=== PATIENT | female | born 1955 | race Caucasian/White ===

== ENCOUNTER 2025-06-18 07:45 | Day surgery (SDC) | payer MEDICARE, OTHER ==
[~2025-06-18] VITALS: Ht 170.2 cm; Wt 76.0 kg
[~2025-06-18 07:45] MED LIST: ATORVASTATIN CA20 MG PO; CALCIUM 600 +1 EAC1 PO; FISH OIL 1,0001 EAC6 PO; GARLIC100 MG PO; KEFLEX500 MG PO; LACTATED RINGER'S 1,000 ML IV SCH; LEVOTHYROXINE50 MCG PO; LOSARTAN POTASS50 MG PO; MULTIVITAMINS1 EAC7 PO; NITROFURANTOIN100 M1 PO; NORCO 5-325 TA1 EACH PO; OMEPRAZOLE20 MG PO; ONDANSETRON ODT8 MG PO; OXYCODON-ACETA1 EAC2 PO; PEPCID40 MG PO; PREMPRO 0.3 MG1 EACH PO; RABEPRAZOLE SOD20 MG PO; VITAMIN C WITH500 MG PO; VITAMIN D1000 UNI1 PO; VITAMIN D325 MC2 PO
[2025-06-18 07:53] VITALS: BP 143/59
[2025-06-18] MEDS ORDERED: LIDOCAINE HCL 1% 5 ML SDV INJ ONE (08:15)
[2025-06-18] MEDS ORDERED: IBLOOD GLUCOSE TEST STRIP 1 EA TEST VI PRN (08:15)
[2025-06-18] MEDS ORDERED: CEFAZOLIN SODIUM 2 GM/20 ML SYR IV SCH (08:15)
[2025-06-18] MEDS ORDERED: LIDOCAINE HCL 2% 5 ML SDV ONE (09:43)
[2025-06-18] MEDS ORDERED: fentaNYL citrate 100 MCG/2 ML VIAL ONE (09:43)
[2025-06-18] MEDS ORDERED: MIDAZOLAM HCL 2 MG/2 ML VIAL ONE (09:43)
--- NOTE | 2025-06-18 10:29 | NUR ---
06/18/25 1029 Madelin Monten[place] 1023: PT ARRIVES TO PACU NON AROUSAL. REPORT RECEIVED FROM BOX OFFICE MANAGER AND ROLLER SKATER.
[2025-06-18] MEDS ORDERED: NALOXONE HCL 0.4 MG SYR IV PRN (10:30)
[2025-06-18] MEDS ORDERED: HYDROCODONE/ACETA 5/325 TAB PO PRN (10:30)
[2025-06-18 11:01] VITALS: BP 134/72
[2025-06-18] MEDS ORDERED: IBUPROFEN 800 MG TAB PO SCH (14:00)
--- NOTE | 2025-06-22 19:15 | PATH ---
[facility] [address] [place], [place] [address] Signed SPECIMEN(S): A INTRAUTERINE POLYP SPECIMEN SOURCE: A. INTRAUTERINE POLYP CLINICAL HISTORY: Endometrial polyp FINAL PATHOLOGIC DIAGNOSIS: Endometrium, biopsy: - Benign endometrial polyp with cystic glandular change. - No hyperplasia or malignancy identified. [facility] MICROSCOPIC EXAMINATION: Histologic sections of all submitted blocks are examined by light microscopy. These findings, together with the gross examination, support the pathologic diagnosis. GROSS DESCRIPTION: The specimen, labeled and designated "Brett, intrauterine polyp," is received in formalin and consists of multiple fragments of montemayor soft tissue (2.1 x 0.8 x 0.3 cm in aggregate). The specimen is submitted entirely in cassette (A1). VB (under the direct supervision of a pathologist) The Gross Description was prepared using a voice recognition system. The report was reviewed for accuracy; however, sound-alike word errors, addition and/or deletions may occur. If there is any question about this report, please contact Client Services. ADDITIONAL NOTES: Immunohistochemical and/or in situ hybridization studies if performed in this case included appropriate positive controls that reacted as expected. This test was developed and its performance characteristics determined by [facility]. It has not been cleared or approved by the U.S. Food and Drug Administration. The FDA has determined that such clearance or approval is not necessary. This test is used for clinical purposes. It should not be regarded as investigational or for research. [facility] is certified under the Clinical Laboratory Improvement Amendments of 1988 (CLIA) as qualified to perform high complexity clinical PATIENT NAME: ASHELY RUBIO PATHOLOGY DATE OF : 55 REPORT #: [id number] PHYSICIAN: SHANNAN MORGAN PCP: MARIA T FERREIRA MD REPORT IS CONFIDENTIAL AND NOT TO BE RELEASED WITHOUT AUTHORIZATION [address], [place] [address] Signed laboratory testing. PERFORMING LABORATORY: Technical component was performed by [facility], [address] [place] [address] (CLIA# [id number]). Professional interpretation was performed by [facility], [address] [place] [id number] (CLIA#: [id number]). Diagnostician: Jayy Ayala MD Pathologist Electronically Signed 06/22/2025 Copies: ~ PATIENT NAME: ASHELY RUBIO PATHOLOGY DATE OF : 55 REPORT #: [id number] PHYSICIAN: SHANNAN MORGAN PCP: MARIA T FERREIRA MD REPORT IS CONFIDENTIAL AND NOT TO BE RELEASED WITHOUT AUTHORIZATION
== END 2025-06-18 11:10 | disposition home or self-care (01) ==
LOC: DS 07:45
PROVIDERS: ATTEND Obstetrics & Gynecology
PROC: 0UB98ZZ Excision of Uterus, Via Natural or Artificial Opening Endoscopic (ICD-10-PCS; principal; 2025-06-18 10:00)
DX: N84.0 Polyp of corpus uteri (principal); I10 Essential (primary) hypertension; K21.9 Gastro-esophageal reflux disease without esophagitis; E03.9 Hypothyroidism, unspecified; Z87.891 Personal history of nicotine dependence; Z79.899 Other long term (current) drug therapy; Z98.51 Tubal ligation status
CPT/HCPCS: 00952; J0690; J2003; J2250; J2704; J3010